=== PATIENT | female | born 1965 | race Hispanic/Latino ===

== ENCOUNTER 2018-08-28 17:24 | Emergency (ER) | payer OTHER ==
[~2018-08-28] VITALS: Ht 157.5 cm; Wt 81.6 kg
[2018-08-28] MEDS ORDERED: FAMOTIDINE 20 MG TAB PO ONE (17:45)
[2018-08-28] MEDS ORDERED: DIPHENHYDRAMINE HCL 25 MG CAP PO ONE (17:45)
== END 2018-08-28 18:50 | disposition home or self-care (01) ==
LOC: ER 17:24
DX: L50.0 Allergic urticaria (principal); Z88.2 Allergy status to sulfonamides
CPT/HCPCS: 99283